=== PATIENT | male | born 1950 | race African-American/Black ===

== ENCOUNTER 2018-06-10 16:13 | Emergency (ER) | payer MEDICARE, OTHER ==
[~2018-06-10] VITALS: Ht 185.4 cm; Wt 94.3 kg
[2018-06-10 16:30] VITALS: BP 109/70
[2018-06-10] MEDS ORDERED: ACYCLOVIR200 MG ORAL (16:33)
[2018-06-10] MEDS ORDERED: Azithromycin 250mg tab ORAL ONE (16:45)
[2018-06-10] MEDS ORDERED: Lidocaine 1% MPF 10mg/ml 5ml INJ ONE (16:45)
[2018-06-10 16:47] LABS: APPEARANCE,URINE CLEAR; BILIRUBIN, URINE NEGATIVE (NEGATIVE); COLOR,URINE AMBER; GLUCOSE, URINE (UA) NEGATIVE (NEGATIVE); KETONES,URINE NEGATIVE (NEGATIVE); LEUKOCYTE ESTERASE ,URINE 1+ (NEGATIVE); NITRITE,URINE NEGATIVE (NEGATIVE); PH,URINE 6 (4.5-8.0); PROTEIN,URINE NEGATIVE (NEGATIVE); UROBILINOGEN,URINE 1 MG/DL (0.0-1.0)
[2018-06-10] MEDS ORDERED: CEPHALEXIN500 MG ORAL (16:54)
[2018-06-10 16:58] VITALS: BP 109/70
--- NOTE | 2018-06-10 18:35 | Emergency Room Report ---
History of Present Illness General Chief Complaint: Male Urogenital Problems Source: Patient Present Illness HPI Patient is a 67-year-old male presenting for dysuria for the past 3 days. He states that he has had unprotected sex with a new partner and is unsure about their STD status. He states the pain only occurs with urination. He states that he has had a UTI in the past and this feels the same. He denies hematuria , penile discharge, abdominal pain, back pain, fever, chills. Allergies: Coded Allergies: No Known Allergies (Unverified , 06/10/18) Patient History Past Medical History: see triage record Pertinent Family History: none Reviewed Nursing Documentation: PMH: Agreed; PSxH: Agreed Nursing Documentation-PMH Past Medical History: No History, Except For Review of Systems All Other Systems: negative except mentioned in HPI Physical Exam Vital Signs Date Time Temp Pulse Resp B/P (MAP) Pulse Ox O2 Delivery O2 Flow Rate FiO2 06/10/18 16:30 16 109/70 94 Room Air 06/10/18 16:30 98.2 76 98.2 Sp02 EP Interpretation: reviewed, normal General Appearance: no apparent distress, alert, GCS 15, non-toxic Head: normocephalic, atraumatic Gastrointestinal: normal bowel sounds, non tender, soft, non-distended, no guarding, no rebound Musculoskeletal: back normal, gait/station normal, normal range of motion, non- tender Neurologic: alert, oriented x3, responsive, motor strength/tone normal, sensory intact, speech normal Psychiatric: judgement/insight normal, memory normal, mood/affect normal, no suicidal/homicidal ideation Skin: normal color, no rash, warm/dry, well hydrated Medical Decision Making PA Attestation Dr. Larson is my supervising physician. Patient management was discussed with my supervising physician Diagnostic Impression: Primary Impression: Urinary tract infection Qualified Codes: N39.0 - Urinary tract infection, site not specified ER Course Patient is a 67-year-old male presenting for dysuria for the past 3 days Differential diagnosis considered but not limited to: UTI, STD, urethritis, pyelonephritis, among others PE: afebrile. NAD Abdomen is soft and nontender. No CVA tenderness Urinalysis shows 1+ leukocyte esterase The patient would like to be treated for STD due to unprotected sex with new partner. He was given azithromycin and Rocephin. He will be treated for urinary tract infection as well with Keflex ER precautions given Laboratory Tests Test 06/10/18 16:34 Urine Color Arin Urine Appearance Clear Urine pH 6 (4.5-8.0) Urine Specific [place] 1.020 (1.005-1.035) Urine Protein Negative (NEGATIVE) Urine Glucose (UA) Negative (NEGATIVE) Urine Ketones Negative (NEGATIVE) Urine Blood Negative (NEGATIVE) Urine Nitrite Negative (NEGATIVE) Urine Bilirubin Negative (NEGATIVE) Urine Ictotest Negative (NEGATIVE) Urine Urobilinogen 1 MG/DL (0.0-1.0) H Urine Leukocyte Esterase 1+ (NEGATIVE) H Urine RBC 0 /HPF (0 - 0) Urine WBC 2-4 /HPF (0 - 0) Urine Squamous Epithelial Cells Occasional /LPF Urine Bacteria Few /HPF (NONE) Urine Mucus Moderate /LPF (NONE/OCC) H Lab Results Impression 1+ leuk esterase. Negative nitrites. No hematuria Last Vital Signs Date Time Temp Pulse Resp B/P (MAP) Pulse Ox O2 Delivery O2 Flow Rate FiO2 06/10/18 16:58 98.2 16 109/70 94 Room Air 98.2 06/10/18 16:30 76 Status: improved Disposition: HOME, SELF-CARE Condition: Improved Scripts Cephalexin* (KEFLEX*) 500 Mg Capsule 500 MG ORAL EVERY 6 HOURS, #28 CAP Prov: KEM COHN 06/10/18 Referrals: NON PHYSICIAN (PCP) Patient Instructions: Urinary Tract Infection Additional Instructions: I discussed my findings with the patient. All questions and concerns have been answered. Treatment and medication compliance have been addressed. I advised the patient that they need to follow up with PMD in 3-5 days. Return to ED if symptoms worsen, new symptoms arise, or if needed for any reason. Patient verbalized understanding of discharge instructions. KEM COHN Jun 10, 2018 18:35
== END 2018-06-10 16:58 | disposition home or self-care (01) ==
LOC: EMR 16:40
DX: N39.0 Urinary tract infection, site not specified (principal); Z87.440 Personal history of urinary (tract) infections
CPT/HCPCS: 81003; 96372; 99283; J0696